=== PATIENT | male | born 1980 | race Caucasian/White ===

== ENCOUNTER 2024-01-03 10:45 | Inpatient (IN) | payer OTHER ==
[2024-01-03 11:28] VITALS: BMI 19.3
[2024-01-03] MEDS ORDERED: MAGNESIUM HYDROX 2400MG/30ML ORAL SUSPENSION 30 ML CUP PO PRN (12:19)
[2024-01-03] MEDS ORDERED: DICYCLOMINE HCL 10 MG CAPSULE PO PRN (12:19)
[2024-01-03] MEDS ORDERED: ONDANSETRON *ODT* 4 MG TABLET SL PRN (12:19)
[2024-01-03] MEDS ORDERED: POLYETHYLENE GLYCOL (HEALTHYLAX) 3350 17 GM PACKET PO PRN (12:19)
[2024-01-03] MEDS ORDERED: BENZONATATE 200 MG CAPSULE PO PRN (12:19)
[2024-01-03] MEDS ORDERED: NALOXONE HCL 0.4 MG/ML VIAL IM PRN (12:19)
[2024-01-03] MEDS ORDERED: LOPERAMIDE HCL 2 MG CAPSULE PO PRN (12:19)
[2024-01-03] MEDS ORDERED: NALOXONE (NARCAN) HCL 4 MG/0.1 ML SPRAY NS PRN (12:19)
[2024-01-03] MEDS ORDERED: PRENATAL VITAMINS W/ FOLIC ACID TABLET (FP) PO ONE (13:26)
[2024-01-03] MEDS ORDERED: NICOTINE 21 MG/24 HOURS TOPICAL PATCH ONE (13:26)
[2024-01-03] MEDS ORDERED: cloNIDine HCL 0.1 MG TABLET ONE (13:26)
[2024-01-03] MEDS ORDERED: methaDONE HCL 10 MG TABLET (FOR DETOX USE ONLY) ONE (13:26)
[2024-01-03] MEDS: NICOTINE 21 MG/24 HOURS TOPICAL PATCH TD SCH (13:31)
[2024-01-03] MEDS: PRENATAL VITAMINS W/ FOLIC ACID TABLET (FP) PO SCH (13:31)
[2024-01-03] MEDS: cloNIDine HCL 0.1 MG TABLET PO SCH (13:31)
[2024-01-03] MEDS: methaDONE HCL 10 MG TABLET PO ONE (13:31)
[2024-01-03] MEDS: SULFAMETHOXAZOLE/TRIMETHOPRIM 800MG/160MG D.S. TABLET PO ONE (14:49)
[2024-01-03] MEDS: METHOCARBAMOL 500 MG TABLET PO PRN (17:24)
[2024-01-03] MEDS: methaDONE HCL 10 MG TABLET PO PRN (22:05)
[2024-01-03] MEDS: hydrOXYzine PAMOATE 25 MG CAPSULE (FP) PO PRN (22:06)
[2024-01-03] MEDS: THIAMINE 100 MG TABLET PO SCH (22:06)
[2024-01-03] MEDS: MELATONIN 5 MG TABLETS PO SCH (22:06)
[2024-01-03] MEDS: SULFAMETHOXAZOLE/TRIMETHOPRIM 800MG/160MG D.S. TABLET PO SCH (22:07)
[2024-01-04] MEDS: IBUPROFEN 600 MG TABLET (FP) PO PRN (03:44)
[2024-01-04] MEDS: methaDONE 40 MG, methaDONE 10 MG PO ONE (09:07)
[2024-01-04 12:41] LABS: HEMATOCRIT 36.2 % (35.4-49); HEMOGLOBIN 12.1 GM/dL (11.7-16.9); MCH 29.7 pg (25.7-33.7); MCHC 33.5 g/dl (32.0-35.9); MEAN CELL VOLUME 88.7 fl (80-96); MEAN PLT VOLUME 7.9 fl (7.5-11.1); PLATELET COUNT 390 10^3/uL (134-434); RBC 4.08 M/mm3 (4.00-5.60); RDW 13.9 % (11.9-15.9); WHITE BLOOD COUNT 7.6 K/mm3 (4.0-10.0)
[2024-01-04 14:08] LABS: POTASSIUM 4.3 mmol/L (3.5-5.1)
[2024-01-04 14:17] LABS: BLOOD UREA NITROGEN 15.4 mg/dL (7-18); CREATININE 0.8 mg/dL (0.55-1.3)
[2024-01-04 14:19] LABS: BILIRUBIN,TOTAL 0.3 mg/dL (0.2-1); TOT PROT 7.7 g/dl (6.4-8.2)
[2024-01-04] MEDS: METHOCARBAMOL 500 MG TABLET PO PRN (17:55)
[2024-01-04] MEDS: hydrOXYzine PAMOATE 50 MG CAPSULE (FP) PO PRN (22:11)
[2024-01-05] MEDS ORDERED: cloNIDine HCL 0.1 MG TABLET PO PRN
[2024-01-05] MEDS: methaDONE 40 MG, methaDONE 20 MG PO ONE (09:21)
[2024-01-05] MEDS: diazePAM 5 MG TABLET PO PRN (11:02)
[2024-01-05] MEDS: ACETAMINOPHEN 325 MG TABLET (FP) PO PRN (13:12)
[2024-01-05] MEDS: cloNIDine HCL 0.1 MG TABLET PO PRN (13:12)
[2024-01-05] MEDS: BENZOCAINE/MENTHOL (CHLORASEPTIC ) LOZENGE MM PRN (17:13)
[2024-01-05] MEDS: guaiFENesin 600 MG TABLET.ER (FP) PO PRN (19:38)
[2024-01-06] MEDS: MAG HYDROX/AL HYDROX/SIMETH 30 ML UNIT-DOSE CUP PO PRN (09:33)
[2024-01-06] MEDS: methaDONE 40 MG, methaDONE 30 MG PO ONE (10:10)
[2024-01-06] MEDS: NICOTINE POLACRILEX 4 MG GUM BUC PRN (14:28)
[2024-01-07] MEDS: IBUPROFEN 400 MG TABLET (FP) PO PRN (02:41)
[2024-01-07] MEDS: methaDONE HCL 40 MG DISPERSABLE TABLET PO ONE (09:41)
[2024-01-07] MEDS: diazePAM 5 MG TABLET PO PRN (10:24)
[2024-01-07] MEDS: BISMUTH SUBSALICYLATE 262 MG/15 ML BTL PO PRN (12:31)
[2024-01-07] MEDS: NICOTINE POLACRILEX 4 MG LOZENGE BC SCH (17:31)
[2024-01-07] MEDS: BACITRACIN 0.9 GM PACKET TP SCH (18:31)
[2024-01-07] MEDS: diazePAM 5 MG TABLET PO ONE (22:32)
[2024-01-08] MEDS: methaDONE 80 MG, methaDONE 10 MG PO ONE (09:50)
[2024-01-08] MEDS: diazePAM 5 MG TABLET PO ONE (10:47)
[2024-01-08] MEDS: cloNIDine HCL 0.1 MG TABLET PO PRN (19:50)
[2024-01-08] MEDS: QUEtiapine FUMARATE 100 MG TABLET (FP) PO SCH (22:03)
[2024-01-09 09:05] VITALS: BP 139/86; PULSE 85; RESP 16; TEMP 97.7
[2024-01-09] MEDS: methaDONE 80 MG, methaDONE 10 MG PO ONE (09:47)
== END 2024-01-09 10:14 | disposition other institution (70) | DRG 773 ==
LOC: YASAS 10:45 → Y3N 12:47
PROVIDERS: ADMIT Allergy & Immunology; ATTEND Surgery
PROC: HZ2ZZZZ Detoxification Services for Substance Abuse Treatment (ICD-10-PCS; principal; 2024-01-03)
DX: F11.23 Opioid dependence with withdrawal (principal); F14.20 Cocaine dependence, uncomplicated; F17.210 Nicotine dependence, cigarettes, uncomplicated; F31.9 Bipolar disorder, unspecified; F19.282 Other psychoactive substance dependence with psychoactive substance-induced sleep disorder; F90.9 Attention-deficit hyperactivity disorder, unspecified type; I10 Essential (primary) hypertension; L02.414 Cutaneous abscess of left upper limb; B18.2 Chronic viral hepatitis C; Z62.810 Personal history of physical and sexual abuse in childhood; Z63.8 Other specified problems related to primary support group
CPT/HCPCS: 36415; 80053; 80305; 85027; 86780; 93005; 93010

== ENCOUNTER 2024-06-30 14:53 | Inpatient (IN) | payer OTHER ==
[2024-06-30 15:18] VITALS: BMI 18.1
[2024-06-30] MEDS ORDERED: BENZOCAINE/MENTHOL (CHLORASEPTIC ) LOZENGE MM PRN (15:49)
[2024-06-30] MEDS ORDERED: ONDANSETRON *ODT* 4 MG TABLET SL PRN (15:49)
[2024-06-30] MEDS ORDERED: IBUPROFEN 400 MG TABLET (FP) PO PRN (15:49)
[2024-06-30] MEDS ORDERED: BISMUTH SUBSALICYLATE 524 MG/30 ML PO PRN (15:49)
[2024-06-30] MEDS ORDERED: NALOXONE (NARCAN) HCL 4 MG/0.1 ML SPRAY NS PRN (15:49)
[2024-06-30] MEDS ORDERED: LOPERAMIDE HCL 2 MG CAPSULE PO PRN (15:49)
[2024-06-30] MEDS ORDERED: DICYCLOMINE HCL 10 MG CAPSULE PO PRN (15:49)
[2024-06-30] MEDS ORDERED: MAG HYDROX/AL HYDROX/SIMETH 30 ML UNIT-DOSE CUP PO PRN (15:49)
[2024-06-30] MEDS ORDERED: guaiFENesin 600 MG TABLET.ER (FP) PO PRN (15:49)
[2024-06-30] MEDS ORDERED: MAGNESIUM HYDROX 2400MG/30ML ORAL SUSPENSION 30 ML CUP PO PRN (15:49)
[2024-06-30] MEDS ORDERED: BENZONATATE 200 MG CAPSULE PO PRN (15:49)
[2024-06-30] MEDS ORDERED: POLYETHYLENE GLYCOL (HEALTHYLAX) 3350 17 GM PACKET PO PRN (15:49)
[2024-06-30] MEDS ORDERED: ACETAMINOPHEN 325 MG TABLET (FP) PO PRN (15:49)
[2024-06-30] MEDS ORDERED: NICOTINE POLACRILEX 4 MG GUM BUC PRN (15:49)
[2024-06-30] MEDS ORDERED: methaDONE HCL 10 MG TABLET (FOR DETOX USE ONLY) ONE (17:02)
[2024-06-30] MEDS ORDERED: NICOTINE 14 MG/24 HOURS TOPICAL PATCH TD ONE (17:03)
[2024-06-30] MEDS: NICOTINE 21 MG/24 HOURS TOPICAL PATCH TD SCH (17:13)
[2024-06-30] MEDS: diazePAM 5 MG TABLET PO SCH (17:13)
[2024-06-30] MEDS: cloNIDine HCL 0.1 MG TABLET PO SCH (18:07)
[2024-06-30] MEDS: MIRTAZAPINE 15 MG TABLET (FP) PO SCH (22:36)
[2024-06-30] MEDS: MELATONIN 5 MG TABLETS PO SCH (22:37)
[2024-06-30] MEDS: THIAMINE 100 MG TABLET PO SCH (22:37)
[2024-07-01] MEDS: methaDONE 40 MG, methaDONE 10 MG PO ONE (10:25)
[2024-07-01] MEDS: QUEtiapine FUMARATE 50 MG TABLET PO SCH (10:26)
[2024-07-01] MEDS: PRENATAL VITAMINS W/ FOLIC ACID TABLET (FP) PO SCH (10:26)
[2024-07-01] MEDS: IBUPROFEN 600 MG TABLET (FP) PO PRN (12:16)
[2024-07-01] MEDS: METHOCARBAMOL 500 MG TABLET PO PRN (13:58)
[2024-07-01] MEDS: QUEtiapine FUMARATE 100 MG TABLET (FP) PO SCH (22:01)
[2024-07-02] MEDS: diazePAM 5 MG TABLET PO SCH (05:33)
[2024-07-02] MEDS: LIDOCAINE 4% PATCH TP SCH (09:24)
[2024-07-02] MEDS: diazePAM 5 MG TABLET PO PRN (09:31)
[2024-07-02] MEDS: cloNIDine HCL 0.1 MG TABLET PO PRN (09:46)
[2024-07-02] MEDS: hydrOXYzine PAMOATE 25 MG CAPSULE (FP) PO PRN (17:29)
[2024-07-02] MEDS: ACETAMINOPHEN 500 MG TABLET (FP) PO PRN (18:11)
[2024-07-02] MEDS: METHYL SALICYLATE/MENTHOL 30 GM TUBE TP SCH (22:39)
[2024-07-02] MEDS: LIDOCAINE PATCH REMOVAL MC SCH (22:40)
[2024-07-03] MEDS: IBUPROFEN 400 MG TABLET (FP) PO PRN (04:28)
[2024-07-03] MEDS: diazePAM 5 MG TABLET PO SCH (05:29)
[2024-07-03 06:55] VITALS: BP 138/78; PULSE 112; RESP 18; TEMP 96.9
[2024-07-03] MEDS ORDERED: methaDONE 40 MG, methaDONE 20 MG PO ONE (10:00)
[2024-07-04] MEDS ORDERED: diazePAM 5 MG TABLET PO ONE (06:00)
== END 2024-07-03 07:51 | disposition left against medical advice (07) | DRG 770 ==
LOC: YASAS 14:53 → Y6N 16:02
PROVIDERS: ADMIT Allergy & Immunology; ATTEND Surgery
PROC: HZ2ZZZZ Detoxification Services for Substance Abuse Treatment (ICD-10-PCS; principal; 2024-06-30)
DX: F11.23 Opioid dependence with withdrawal (principal); F13.230 Sedative, hypnotic or anxiolytic dependence with withdrawal, uncomplicated; F14.20 Cocaine dependence, uncomplicated; F17.210 Nicotine dependence, cigarettes, uncomplicated; F19.982 Other psychoactive substance use, unspecified with psychoactive substance-induced sleep disorder; F90.9 Attention-deficit hyperactivity disorder, unspecified type; I10 Essential (primary) hypertension; R45.851 Suicidal ideations; Z62.810 Personal history of physical and sexual abuse in childhood; Z86.69 Personal history of other diseases of the nervous system and sense organs; Z56.0 Unemployment, unspecified
CPT/HCPCS: 93005; 93010